=== PATIENT | male | born 1975 | race African-American/Black ===

== ENCOUNTER 2021-03-07 11:56 | Emergency (ER) | payer OTHER ==
[~2021-03-07] VITALS: Ht 182.9 cm; Wt 79.0 kg
[2021-03-07 12:56] VITALS: BP 130/72
[2021-03-07] MEDS ORDERED: LIDOCAINE 1% Multi-Dose 20 ML VIAL. IJ ONE (14:30)
--- NOTE | 2021-03-07 14:30 | PHYS DOC ---
Past History Past Surgical History: No Surgical History (ZIA DENSON APRN) Alcohol Use: None (ZIA DENSON APRN) General Adult EDM: Chief Complaint: ABSCESS HPI: HPI: Patient is a 45-year-old male who presents to the emergency department today for an abscess to his right earlobe that started on Wednesday. Patient rates his pain 9 out of 10. It is currently draining purulent drainage. Patient denies any fevers, headaches, joint pain, nausea, vomiting. (ZIA DENSON APRN) Review of Systems: Review of Systems: Constitutional: See HPI HENT: See HPI GI: See HPI Musculoskeletal: See HPI Integument: See HPI (ZIA DENOSN APRN) Current Medications: Current Meds: Current Medications Medications (Trade) Dose Ordered Sig/Doug Start Time Stop Time Status Last Admin Dose Admin Lidocaine HCl 20 ml 1X ONCE 03/07/21 14:30 03/07/21 14:31 UNV (ZIA DENSON APRN) Allergies: Allergies: Allergies Coded Allergies Type Severity Reaction Last Updated Verified No Known Drug Allergies 03/07/21 No (ZIA DENSON APRN) Physical Exam: PE: Constitutional: Well developed, well nourished, no acute distress, non-toxic appearance. [] HENT: Normocephalic, atraumatic, 1 cm abscess noted to right earlobe that is draining purulent drainage no streaking noted no erythema noted, oropharynx moist, no oral exudates, nose normal. [] Eyes: PERRL, EOMI, conjunctiva normal, no discharge. [] Neck: Normal range of motion, no tenderness, supple, no palpable lymphadenopathy, no stridor. [] Cardiovascular:Heart rate regular rhythm, no murmur [] Lungs & Thorax: Bilateral breath sounds clear to auscultation [] Abdomen: Bowel sounds normal, soft, no tenderness, no masses, no pulsatile masses. [] Skin: Warm, dry, no erythema, no rash. [] Back: Normal range of motion Extremities: No tenderness, no cyanosis, no clubbing, ROM intact, no edema. [] Neurologic: Alert and oriented X 3, normal motor function, normal sensory function, no focal deficits noted. [] Psychologic: Affect normal, judgement normal, mood normal. [] (ZIA DENSON APRN) Current Patient Data: Vital Signs: Vital Signs Date Time Temp Pulse Resp B/P (MAP) Pulse Ox O2 Delivery O2 Flow Rate FiO2 03/07/21 12:56 98.2 66 16 130/72 (91) 100 Room Air (ZIA DENSON APRN) EKG: EKG: [] (ZIA DENSON APRN) Radiology/Procedures: Radiology/Procedures: [] (ZIA DENSON APRN) Heart Score: C/O Chest Pain: No Risk Factors: Risk Factors: DM, Current or recent (<one month) smoker, HTN, HLP, family history of CAD, obesity. Risk Scores: Score 0 - 3: 2.5% MACE over next 6 weeks - Discharge Home Score 4 - 6: 20.3% MACE over next 6 weeks - Admit for Clinical Observation Score 7 - 10: 72.7% MACE over next 6 weeks - Early Invasive Strategies (ZIA DENSON APRN) Course & Med Decision Making: Course & Med Decision Making Pertinent Labs and Imaging studies reviewed. (See chart for details) [] Patient presents to the emergency department for an abscess to his right earlobe that started Wednesday. Is currently draining purulent drainage. Abscess incised and drained in the emergency department. Patient tolerated procedure. Tetanus was updated. Patient be placed on antibiotic. Patient advised to take anti-inflammatory medications, apply warm moist packs and take the antibiotic. Patient advised to follow-up with his primary care provider. I discussed with patient all findings and diagnostic testing as well as the need to follow-up with PCP for further evaluation and treatment or return to the ER if any new or worsening symptoms. Strict return precautions were also discussed at length. Patient voiced understanding and agreement with the plan. Patient is hemodynamically stable at the time of disposition. (ZIA DENSON APRN) Dragon Disclaimer: Dragon Disclaimer: This electronic medical record was generated, in whole or in part, using a voice recognition dictation system. (ZIA DENSON APRN) Incision and Drainage Indication:r. ear Procedure: The patient was positioned appropriately and the skin over the incision site was betadine. Local anesthesia was 1% lidocaine An small incision was then made over the right ear lobe and purulent material was expressed. Loculations were removed. The drainage cavity was left open to drain, no packing needed. The patients tetanus status up to date The patient tolerated the procedure Complications:none (ZIA DENSON APRN) Attending Co-Sign The patient was seen and interviewed as well as examined at the bedside. The chart was reviewed. The case was discussed. Agree with the plan of care. (CHICA LUCAS DO) Departure Departure: Impression: Primary Impression: Abscess Disposition: HOME / SELF CARE / HOMELESS Condition: GOOD Referrals: LI GEIGER MD (PCP) Patient Instructions: Abscess, Care After Additional Instructions: You are seen in the emergency department today for an abscess to your right ear. This was drained in the emergency department and you will be placed on antibiotic. Your tetanus was updated in the ER today. Please start and finish the antibiotic completely. For pain you can take Tylenol and/or ibuprofen. You can also apply warm moist heat packs to help with drainage. Follow-up with your doctor on Wednesday regarding your ER visit. Please return to the emergency department if you develop worsening of your pain and swelling, high fevers refractory to treatment, headache, body aches or joint pain, intractable nausea or vomiting. Scripts Sulfamethoxazole/Trimethoprim (BACTRIM DS TABLET) 1 Each Tablet 1 TAB PO BID for infection for 7 Days, #14 TAB 0 Refills Prov: ZIA DENSON APRN 03/07/21 ZIA DENSON APRN Mar 07, 2021 14:30 CHICA LUCAS DO Mar 08, 2021 08:05
[2021-03-07] MEDS ORDERED: SULF1TAB24 PO ×2 (15:05→15:20)
[2021-03-07] MEDS ORDERED: DIPH,PERTUSS(ACELL),TET VAC/PF 0.5 ML SYRINGE. VAX IM ONE (15:15)
== END 2021-03-07 15:36 | disposition home or self-care (01) ==
LOC: ER 11:56
DX: H66.41 Suppurative otitis media, unspecified, right ear (principal)
CPT/HCPCS: 69000; 90471; 90715; 99283-25